=== PATIENT | male | born 1950 | race Caucasian/White ===

== ENCOUNTER 2020-07-28 10:34 | Emergency (ER) | payer OTHER, SELFPAY ==
[2020-07-28 10:40] VITALS: BP 156/104; PULSE 81; RESP 14; O2SAT 96; BMI 29.4
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
--- NOTE | 2020-07-28 10:56 | XR_ITS ---
WS: [id number] Right ankle, 3 views, 07/28/2020 Clinical Data: ankle injury with pain and swelling Comparison: None. Findings: There is an oblique fracture of the distal right fibula at the level of the ankle mortise. There is m inimal displacement. The ankle mortise is intact. The medial malleolus and distal tibia are normal. Minimal calcification in the caldwell of the posterior tibial artery can be seen. XR/XR ankle RT min 3V* [id number] Impression: Oblique fracture of distal right fibula.
[2020-07-28 12:10] VITALS: BP 139/72; PULSE 72; RESP 14; O2SAT 96
--- NOTE | 2020-07-28 14:01 | DCPLANNER ---
farm field manager had message to schedule a follow up appointment for patient with ortho. farm field manager called the ortho clinic, spoke with Beatriz, gave clinic patients information. farm field manager was told that patients information would be printed and reviewed. Clinic will call patient with appointment information.
--- NOTE | 2020-07-31 10:56 | DCPLANNER ---
Matilde from [facility] called clinical case manager with appointment information. Patient has a follow up appointment scheduled for Friday, July 31, 2020 at 1:[address] Reeves. Clinic will call patient with appointment information. insurance risk manager called [facility] with [facility] to inform the [facility] of [facility] scheduled appointment.
--- NOTE | 2020-08-03 14:52 | DCPLANNER ---
Patient had an appointment scheduled for 07.31.20 with ortho - patient did attend the appointment.
== END 2020-07-28 12:11 | disposition home or self-care (01) ==
LOC: ER 11:52
PROVIDERS: Emergency Provider Physician Assistant; PCP Family Medicine
DX: S82.831A Other fracture of upper and lower end of right fibula, initial encounter for closed fracture (principal); X50.1XXA Overexertion from prolonged static or awkward postures, initial encounter
CPT/HCPCS: 12345; 29515; 73610; 99281; 99283

== ENCOUNTER → 2020-08-01 07:45 | Outpatient (BNVA) | payer OTHER, SELFPAY | PROVIDERS: PCP Family Medicine; Visit Provider Specialist | DX: Z11.59 Encounter for screening for other viral diseases (principal) | CPT/HCPCS: 87635 ==

== ENCOUNTER 2020-08-04 07:15 | Day surgery (SDC) | payer OTHER, SELFPAY ==
[2020-08-03 13:19] VITALS: BMI 29.4
--- NOTE | 2020-08-04 | SCC_ITS ---
Procedure Done: Open reduction internal fixation right distal fibula fracture, displaced, utilizing the Malia lateral fibular plate, 4-hole 57.3 seconds of fluoroscopic guidance, for a cumulative dose of 2.59 mGy, was provided to Dr. Reeves by the radiology department. C-arm images of the RIGHT ankle were saved for the patient's permanent record. [facility]
--- NOTE | 2020-08-04 | XRR_ITS ---
PROCEDURE INFORMATION: Exam: XR Right Ankle Exam date and time: 08/04/2020 11:51 AM Age: 70 years old Clinical indication: Device placement; Joint fixation hardware; Prior surgery; Surgery date: Post-operative (0-2 days); Additional info: Or pics TECHNIQUE: Imaging protocol: XR Right ankle. Views: 1 or 2 views. COMPARISON: CR XR ankle RT min 3V* [id number] 07/28/2020 11:02 AM FINDINGS: Bones/joints: Metallic plate and screws are present in the lateral malleolus consistent with ORIF. The bones appear anatomically aligned. No additional bony abnormalities are present. Soft tissues: Unremarkable XR/XR ankle RT 2V [id number] IMPRESSION: 1. Status post ORIF lateral malleolus 2. Otherwise No acute findings.
[2020-08-04 07:49] VITALS: BP 120/65; PULSE 78; RESP 18; TEMP 35.8; O2SAT 99
[2020-08-04 07:50] LABS: Add Urine Microscopic? NO
--- NOTE | 2020-08-04 08:09 | W.PM.OPSUD ---
Surgery/Procedure H&P Update DATE OF PROCEDURE: August 04, 2020 DATE H&P PERFORMED: 07/31/20 H&P UPDATE INFORMATION: I have reviewed H&P completed within last 30 days, No changes to prior documentation and H&P is in [facility] EMR on date indicated PREOP DIAGNOSIS: Right distal fibula fracture, displaced PLANNED PROCEDURE: Operation Date: 08/04/20 09:30 Proposed Procedures p R ORIF Distal Fibula(Right) - Sherrie Reeves MD Related Problem List Diagnoses (1) Fracture of distal end of fibula: Qualifiers: Encounter type: initial encounter Fracture morphology: other fracture Fracture type: closed Laterality: right Qualified Code(s): S82.831A - Other fracture of upper and lower end of right fibula, initial encounter for closed fracture
[2020-08-04] MEDS: sodium chloride 0.9% 1,000 ML 30 ML IV (08:19)
[2020-08-04] MEDS: CELEcoxib 200 mg Capsule 400 MG PO (08:19)
--- NOTE | 2020-08-04 08:21 | ANES.PREANE2 ---
Pre-Anesthetic Assessment Pre-Anesthetic Assessment: Height/Weight: Height 1.83 m Weight 98.43 kg Temp Pulse Resp BP Pulse Ox 96.5 F L 78 18 120/65 99 08/04/20 07:49 08/04/20 07:49 08/04/20 07:49 08/04/20 07:49 08/04/20 07:49 Preop Diagnosis: Right distal fibula fracture, displaced Proposed Procedure: Operation Date: 08/04/20 09:30 Proposed Procedures p R ORIF Distal Fibula(Not Applicable) - Sherrie Reeves MD Familial anesthetic complications: None Was Beta Fernando taken within 24 hours: N/A Last intake: Intake Last Liquid Date 08/04/20 Last Liquid Time 00:00 Last Solid Date 08/03/20 Last Solid Time 20:00 Social: Social History: Alcohol and No alcohol Comment: 1 drink daily Exam: Pre-Anes Outpt Exam: alert, oriented x 3, clear to auscultation bilaterally and regular rate & rhythm Airway: Cervical ROM: WNL MP: 2 Dentition: False Additional comments: Full wolff Pulmonary: Pulmonary: Sleep apnea (suspected) Hepatic: Comments: fatty liver Neuropsych: Neuropsych: TIA (last one several years ago) Anesthetic Plan: ASA status: 2 Anesthesia: General and Regional (specify below) Risk of > 500 ml blood loss (7ml/kg in children): No Meds/Allergies Current Medications: Current Medications Generic Name Dose Route Start Last Admin Trade Name Freq PRN Reason Stop Dose Admin Sodium Chloride 1,000 mls @ 30 ml s/hr 08/04/20 07:45 08/04/20 08:19 Sodium Chloride 0.9% IV 08/05/20 07:44 30 mls/hr .Q24H IRA Administration PFSH Anesthesia PFSH: Social History Smoking and tobacco status: never smoked Alcohol intake: current Alcohol intake frequency: 0-2 Drinks per Day Data Anesthesia CBC & Chem 7: 08/04/20 08:10 08/04/20 08:10 Cardiac Studies: No Data to Display
[2020-08-04 08:22] LABS: Basophils # 0.1 10^3/uL (0.0-0.1); Basophils % 0.5 %; Eosinophils # 0.1 10^3/uL (0.0-0.8); Eosinophils % 1.4 %; Hematocrit 47.2 % (42.0-52.0); Hemoglobin 16.1 g/dL (11.7-16.6); Lymphocytes # 1.6 10^3/uL (0.8-4.8); Lymphocytes % 15.1 %; Mean Corpuscular HGB Conc 34.1 g/dL (30.0-36.0); Mean Corpuscular Hemoglobin 30.8 pg (28.0-34.0); Mean Corpuscular Volume 90.2 fL (80-94); Mean Platelet Volume 10.9 fL (7.4-10.4); Monocytes # 0.8 10^3/uL (0.2-0.9); Monocytes % 7.6 %; Neutrophils # 7.75 10^3/uL (1.8-7.7); Nucleated Red Blood Cells % 0 %; Platelet Count 166 10^3/cmm (130-400); Red Blood Count 5.23 10^6/uL (4.1-5.3); Red Cell Distribution Width 12.8 % (12.1-15.1); White Blood Count 10.3 10^3/uL (4.0-10.0)
[2020-08-04 08:38] LABS: Bilirubin Urine Neg (Negative); Blood Urine Neg (Negative); Glucose Urine UA Norm (Normal); Ketones Urine Negative (Negative); Leukocyte Esterase Urine Negative (Negative); Nitrate Urine Negative (Negative); Protein Urine Neg (Negative); Urine Appearance Clear (CLEAR); Urine Color Yellow (Yellow); Urobilinogen Urine 1 mg/dL (Negative); pH Urine 6.5 (5-7)
[2020-08-04] MEDS: midazolam 1 mg/mL INJ 2 mL 2 MG IVP (08:40)
[2020-08-04 08:54] LABS: Blood Urea Nitrogen 13 mg/dL (8-23); Calcium 9.6 mg/dL (8.5-10.5); Carbon Dioxide 25 mmol/L (22-29); Chloride 100 mmol/L (98-107); Glucose 98 mg/dL (65-115); Osmolality Calculated 280 mOsm/kg (285-295); Sodium 135 mmol/L (136-145)
[2020-08-04 08:55] LABS: Anion Gap 14.6 (5-19); Potassium 4.6 mmol/L (3.5-5.1)
--- NOTE | 2020-08-04 09:08 | ANES.PROC ---
Anesthesia Procedures Procedure/Date: 08/04/20 Nerve Block ^: Nerve Block 1: Main Anesthesia: general anesthesia Time Out Performed: Yes Consent: requested by attending/covering physician, from patient, risks and benefits reviewed and patient agrees to proceed Nerve block location: popliteal (R) Anesthesia monitors applied: pulse oximetry, BP cuff and oxygen Nerve block position: supine Anesthetic Used: ropivicaine 0.5% and with decadron (4 mg) Amount of anesthesia used (mL): 30 Ultrasound used to: recognize landmarks Nerve Stimulator Used?: No Interscalene/Femoral BLK: 4 stimuplex 21 g needle used for position and inplane approach, other needle, visualize local anesthetic spread and no vascular puncture identified Injection: neg aspiration of heme Patient Tolerated Procedure: well and no complications Complications: none Additional Comments: Patient experienced parasthesia with needle redirection. Needle was re-directed with dissapearance of parasthesia. No injection occurred during parasthesia
[2020-08-04] MEDS: ceFAZolin 1,000 mg SDV 1000 MG IRRIGATION (10:47)
--- NOTE | 2020-08-04 11:28 | PM.OP ---
Operative Report Date of procedure: August 04, 2020 Pre-op Diagnosis: Right distal fibula fracture, displaced Procedure Done: Open reduction internal fixation right distal fibula fracture, displaced, utilizing the Malia lateral fibular plate, 4-hole Specimens removed/disposition: None Pathology: none sent Surgeon: Sherrie Reeves Cutting Table Operator: [facility] OR technicians Anesthesia: General (Intubated, ASA 2) Estimated blood loss (mL): 5 Tourniquet time (min): 56 Tourniquet time: At 250 mmHg IV fluids (mL): 800 Urine output (mL): 0 Urine output: No Malave Complications: None Condition: stable Disposition: PACU (Then home with family) Brief History: This 70-year-old gentleman presented after a fall where he suffered the above injury. He was seen in the office, and upon discussion, we elected to proceed with open reduction internal fixation to allow him to begin movement and function more quickly. The patient understood the risks and complications and agreed to proceed. Procedure: Patient was seen in the preoperative holding area and leg was marked. Patient was brought to the operating theater and placed on the operating room table. After undergoing adequate general intubated anesthesia, ASA 2, the patient's right lower extremity was prepped and draped in usual fashion utilizing DuraPrep. The leg was draped free. Fluoroscopy was used throughout the surgical procedure. We did have a tourniquet high on the right lower extremity. This was elevated to 250 mmHg and total tourniquet time was 56 minutes. Tourniquet elevation followed exsanguination of the leg. A surgical pause was performed. At the time of the surgical pause we identified the site and side of surgery as well as the patient's identity and availability of equipment. We also confirmed appropriate administration of IV antibiotics, Ancef 2 g. Following the above, an incision was made centering over the patient's distal fibular fracture. The incision was continued proximally and distally as necessary to allow access to the fracture site. We were able to reduce the fracture anatomically. This was held with a clamp while we contoured a plate to appropriately fit the patient's right distal fibula. Sheridan 4-hole lateral fibular plate plate was attached with standard technique. We used a combination of locking as well as nonlocking screws. Once the plate was appropriately attached, we irrigated the wound. We then closed the wound with 2-0 Monocryl in the subcutaneous tissues, and the skin was closed with 3-0 Monocryl. At the conclusion we obtained AP and lateral images demonstrating the fracture was anatomically reduced. Sterile dressing was placed consisting of Exofin, steri-strips, opsite, 4 x 4's, sterile soft roll and an Imer wrap. Anteriorly, the patient had 2 large areas of skin breakdown and these had a an OpSite placed over them. The patient was placed in a Cam Walker boot and is to remain touchdown weightbearing. The procedure was well tolerated without complication. Tourniquet time was 56 minutes at 250 mmHg. The patient will be discharged home to follow-up in my office as scheduled. Associated Problem List Diagnoses (1) Fracture of distal end of fibula: Qualifiers: Encounter type: initial encounter Fracture morphology: other fracture Fracture type: closed Laterality: right Qualified Code(s): S82.831A - Other fracture of upper and lower end of right fibula, initial encounter for closed fracture
[2020-08-04 11:38] VITALS: BP 122/72; PULSE 98; RESP 16; TEMP 36.6; O2SAT 94
[2020-08-04 11:45] VITALS: BP 146/82; PULSE 87; RESP 18; O2SAT 96
[2020-08-04 11:52] VITALS: BP 129/76; PULSE 85; RESP 18; TEMP 35.8; O2SAT 93
[2020-08-04 12:07] VITALS: BP 131/81; PULSE 77; RESP 18; O2SAT 97
--- NOTE | 2020-08-04 12:10 | ANE.PACU2 ---
Inpatient post-anesthesia follow up: Airway intact: Yes Vital signs: Temperature 96.5 F Pulse Rate 77 Respiratory Rate 18 Blood Pressure 131/81 Pulse Oximetry 97 Oxygen Delivery Me thod Room Air Oxygen Flow Rate Fraction of Inspir ed Oxygen Hydration adequate: Yes Nausea and vomiting: No Pain level: 1 Mental status: Baseline
== END 2020-08-04 12:25 | disposition home or self-care (01) ==
PROVIDERS: PCP Family Medicine; Visit Provider Specialist
PROC: 0QSK04Z Reposition Left Fibula with Internal Fixation Device, Open Approach (ICD-10-PCS; CPT 27828; principal; 2020-08-04 09:30)
DX: S82.831A Other fracture of upper and lower end of right fibula, initial encounter for closed fracture (principal); G47.30 Sleep apnea, unspecified; Z86.73 Personal history of transient ischemic attack (TIA), and cerebral infarction without residual deficits; X58.XXXA Exposure to other specified factors, initial encounter
CPT/HCPCS: 27792; 12345; 36415; 73600; 76000; 80048; 81003; 85025; 96365; 96374; C1713; J0131; J0330; J0690; J1100; J2250; J2405; J2704; J2795; J3010; J3490; J7030

== ENCOUNTER 2020-08-08 16:00 | Emergency (ER) | payer OTHER, SELFPAY ==
[2020-08-08 16:19] VITALS: BP 130/81; PULSE 84; RESP 16; TEMP 36.9; O2SAT 99; BMI 29.8
--- NOTE | 2020-08-08 16:32 | USCV_ITS ---
Torres Ojeda Age: 70 Gender: M : 1950 Exam Date: 08/08/2020 16:48 Ordering Phys: Kobe Gomes Technologist: Mary Ozuna [place] [facility] [place] Indication: LEG SWELLING POST OP PAIN PROCEDURES: Venous duplex imaging was performed in only the right lower extremity. The following venous structures were evaluated: common femoral vein, profunda vein, proximal portion of the greater saphenous vein, superficial femoral vein, and the popliteal vein. In addition, the posterior tibial and peroneal trunk were evaluated. Serial compression, augmentation maneuvers, and spectral Doppler flow evaluation were performed. FINDINGS: Normal 2-D Doppler and augmentation and compressibility throughout the lower extremity venous structures. Additional imaging through the proximal calf veins also reveals no thrombus. Limited evaluation of the greater saphenous vein is patent with no thrombus.. CONCLUSIONS No evidence of right lower extremity DVT. Parth Shoemaker MD (Electronically Signed) Final Date: 09 August 2020 08:59 S
--- NOTE | 2020-08-08 16:33 | ED_ITS ---
HPI - Wound/Laceration General: Chief Complaint: Wound/Laceration Stated Complaint: redness on incision post surg Time Seen by Provider: 08/08/20 16:23 History of Present Illness: HPI narrative: Patient had surgery right lower extremity on 08/[address] Omalley. Patient will gas foot about a 1300 a notes that was read and felt full. Call Dr. Omalley's office said come and get evaluated Onset (ago): hour(s) Extremity Location: Right: lower leg Place: home Patient tetanus UTD: Yes Associated symptoms: Reports no associated symptoms Review of Systems Skin/Breast: Reports: erythema and skin tenderness (Right lower extremity right foot redness since about 1300) PFSH ED PFSH: Social History Smoking and tobacco status: never smoked Alcohol intake: current Alcohol intake frequency: 0-2 Drinks per Day Physical Exam Const: COMMON NORMALS: no acute distress Extremity: RIGHT LOWER EXTREMITY: Yes foot & digits (Right foot lateral aspect down below toes #4 and 5 there is redness to the dorsal aspect of the willow machine tender to the touch erythema does not extend proximally from that area) Course Vital Signs: Vital signs: Vital Signs Temperature 98.5 F 08/08/20 16:19 Pulse Rate 74 08/08/20 17:38 Respiratory Rate 14 08/08/20 17:38 Blood Pressure 114/66 08/08/20 17:38 Pulse Oximetry 96 08/08/20 17:38 Discharge Plan Discharge Patient Disposition: Home Clinical Impression: Cellulitis Qualifiers: Site of cellulitis: other site Qualified Code(s): L03.818 - Cellulitis of other sites Condition: Stable Prescriptions: New Bactrim DS 800-160 mg tablet 1 tab PO BID 7 Days Qty: 14 RF: 0 No Action atorvastatin 40 mg tablet 40 mg PO DAILY RF: 0 cholecalciferol (vitamin D3) 25 mcg (1,000 unit) capsule 25 mcg PO DAILY RF: 0 cyclobenzaprine 10 mg tablet 10 mg PO TID PRN (Reason: for sleep) RF: 0 gabapentin 300 mg capsule 300 mg PO QID RF: 0 lisinopril 10 mg tablet 10 mg PO DAILY RF: 0 tadalafil 10 mg tablet 10 mg PO DAILY PRN (Reason: Sexual Activity) RF: 0 tamsulosin 0.4 mg capsule 0.4 mg PO DAILY RF: 0 allopurinol 300 mg PO DAILY RF: 0 meloxicam 15 mg PO DAILY RF: 0 Celebrex 200 mg capsule 200 mg PO DAILY 30 Days Qty: 30 RF: 0 [place] 5-325 mg tablet 1 tab PO Q4H PRN (Reason: pain) Qty: 30 RF: 0 Discharge Orders: Discharge Order (Routine); Ordered 08/08/20 Ordered By: Kobe Gomes Referrals: Prosper Llamas [Primary Care Provider] - Discharge Diet: Usual diet Discharge Activity: Increase activity as tolerated Patient Instructions: Cellulitis (ED) Activity Restrictions/Additional Instructions: Follow-up with medical provider as directed. Take medications as prescribed. Return to the ER or your medical provider if condition worsens. Please read and understand discharge instructions. If any questions ask please. Follow up Dr. Omalley as scheduled Discharge Date/Time: 08/08/20 17:39 Coding Level of Care Code ED Shift Supervisor Film Processing for Vivianag Fwd Exam Expanded Problem Focused
[2020-08-08] MEDS: sulfamethoxazole-trimeth DS 160-800 mg Tablet 1 TAB PO (17:30)
[2020-08-08 17:38] VITALS: BP 114/66; PULSE 74; RESP 14; O2SAT 96
== END 2020-08-08 17:39 | disposition home or self-care (01) ==
PROVIDERS: Emergency Provider Nurse Practitioner Family; PCP Family Medicine
DX: L03.818 Cellulitis of other sites (principal); M79.89 Other specified soft tissue disorders
CPT/HCPCS: 12345; 93971; 99281; 99282

== ENCOUNTER → 2020-08-17 11:51 | Outpatient (BNVA) | payer OTHER, SELFPAY | PROVIDERS: PCP Family Medicine; Visit Provider Specialist | DX: S82.831A Other fracture of upper and lower end of right fibula, initial encounter for closed fracture (principal); X58.XXXA Exposure to other specified factors, initial encounter | CPT/HCPCS: 73610 ==

== ENCOUNTER → 2020-09-07 15:26 | Outpatient (BNVA) | payer OTHER, SELFPAY | PROVIDERS: PCP Family Medicine; Visit Provider Specialist | DX: S82.831A Other fracture of upper and lower end of right fibula, initial encounter for closed fracture (principal); X58.XXXA Exposure to other specified factors, initial encounter | CPT/HCPCS: 73610 ==

== ENCOUNTER → 2020-09-28 08:12 | Outpatient (BNVA) | payer OTHER, SELFPAY | PROVIDERS: PCP Family Medicine; Visit Provider Specialist | DX: S82.831A Other fracture of upper and lower end of right fibula, initial encounter for closed fracture (principal) | CPT/HCPCS: 73610 ==

== ENCOUNTER 2023-03-06 21:20 | Emergency (ER) | payer OTHER, SELFPAY ==
[2023-03-06] VITALS (7 sets, daily range): BP systolic 110–127; BP diastolic 67–77; PULSE 67–79; RESP 16–20; TEMP 36.7; O2SAT 91–95; BMI 31.8
--- NOTE | 2023-03-06 21:25 | XRR_ITS ---
PROCEDURE INFORMATION: Exam: XR Chest Exam date and time: 03/06/2023 9:37 PM Age: 72 years old Clinical indication: Other: Weakness TECHNIQUE: Imaging protocol: Radiologic exam of the chest. Views: 1 view. COMPARISON: CR XR ribs LT mn 3V w CXR1V [id number] 02/02/2017 7:34 PM FINDINGS: Lungs: Cardiac silhouette size, and vascularity are somewhat accentuated, likely related to poor inspiration/expansion however clinical correlation for mild CHF should be obtained. Upper lungs are clear. Lung bases are suboptimally assessed. Pleural spaces: No pleural effusion. No pneumothorax. Heart/Mediastinum: As above. Bones/joints: No acute osseous findings. Probable old/healed left posterior rib fractures. Other findings: Single view was submitted. XR/XR chest 1V portable [id number] IMPRESSION: 1. Accentuated cardiac silhouette size and vascularity. See discussion above. 2. No obvious acute consolidation. Suboptimal lung base assessment. Followup including lateral view may be obtained if clinically indicated.
--- NOTE | 2023-03-06 21:36 | ECG_ITS ---
[facility] Test Date: 2023-03-06 Pat Name: Torres Ojeda Department: Room: Gender: Male Case Supervisor: : 1950 Requested By: Ayden Cortes Order Number: [id number] Lizeth MD: Gretchen Polanco M.D. Measurements Intervals [place]camp[place] Rate: 78 P: 19 VA: 196 QRS: 21 QRSD: 93 T: 52 QT: 378 QTc: 431 Interpretive Statements SINUS RHYTHM NONSPECIFIC T-WAVE ABNORMALITY No previous ECG available for comparison Electronically Signed On 03-07-2023 1:35:22 CDT by Gretchen Polanco M.D. [id number]
[2023-03-06 21:42] LABS: Basophils # 0.1 10^3/uL (0.0-0.1); Basophils % 0.6 %; Eosinophils # 0.1 10^3/uL (0.0-0.8); Eosinophils % 0.8 %; Hematocrit 38.8 % (42.0-52.0); Hemoglobin 13.3 g/dL (11.7-16.6); Lymphocytes # 0.7 10^3/uL (0.8-4.8); Lymphocytes % 8.3 %; Mean Corpuscular HGB Conc 34.3 g/dL (30.0-36.0); Mean Corpuscular Hemoglobin 31.6 pg (28.0-34.0); Mean Corpuscular Volume 92.2 fl (80-94); Mean Platelet Volume 10.3 fL (7.4-10.4); Monocytes # 0.4 10^3/uL (0.2-0.9); Monocytes % 4.7 %; Neutrophils # 7.48 10^3/uL (1.8-7.7); Neutrophils % 85.3 %; Nucleated Red Blood Cells % 0 %; Platelet Count 148 10^3/cmm (130-400); Red Blood Count 4.21 10^6/uL (4.1-5.3); Red Cell Distribution Width 13.9 % (12.1-15.1); White Blood Count 8.8 10^3/uL (4.0-10.0)
[2023-03-06 21:55] LABS: INR 0.97 (0.8-1.2)
[2023-03-06 22:00] LABS: Alanine Aminotransferase 20 U/L (0-41); Alkaline Phosphatase 95 U/L (40-130); Anion Gap 15.4 (5-19); Aspartate Amino Transferase 21 U/L (0-40); Blood Urea Nitrogen 12 mg/dL (8-23); Calcium 8.3 mg/dL (8.5-10.5); Carbon Dioxide 27 mmol/L (22-29); Chloride 101 mmol/L (98-107); Globulin 2.4 g/dL (1.3-4.6); Glomerular Filtration Rate 111.5 mL/min (90-130); Glucose 115 mg/dL (65-115); Osmolality Calculated 289 mOsm/kg (285-295); Potassium 4.4 mmol/L (3.5-5.1); Sodium 139 mmol/L (136-145); Total Bilirubin 0.7 mg/dL (0.15-1.2); Total Protein 6.4 g/dL (6.6-8.7)
[2023-03-06 22:04] LABS: Alcohol Level 19 mg/dL (0-10)
[2023-03-06 22:13] LABS: Troponin(5th) Baseline 16 ng/L (0-15)
[2023-03-06] MEDS: sodium chloride 0.9% 1,000 ML 999 ML IV (22:25)
--- NOTE | 2023-03-06 22:25 | CTR_ITS ---
PROCEDURE INFORMATION: Exam: CT Head Without Contrast Exam date and time: 03/06/2023 10:36 PM Age: 72 years old Clinical indication: Stroke-like symptoms; Speech disturbance; Generalized weakness; Additional info: Weakness. Lkw [id number] TECHNIQUE: Imaging protocol: Computed tomography of the head without contrast. Radiation optimization: All CT scans at this facility use at least one of these dose optimization techniques: automated exposure control; mA and/or kV adjustment per patient size (includes targeted exams where dose is matched to clinical indication); or iterative reconstruction. Other technique: STROKE PROTOCOL was implemented. REPORTING DATA: Count of CT and Cardiac NM exams in prior 12 months: This patient has received 0 known CTs and 0 known cardiac nuclear medicine studies in the 12 months prior to the current study. COMPARISON: No relevant prior studies available. RADIATION DOSE METRICS: Total DLP (mGy-cm): 1249.18 FINDINGS: Brain: Mild periventricular white matter hypodense changes, most likely related to chronic microvascular ischemic disease or other nonspecific white matter disease. Minimal brain parenchymal atrophy. No hemorrhage. No mass effect or midline shift. Cerebral ventricles: No pathologic hydrocephalus. Paranasal sinuses: Visualized sinuses are unremarkable. No fluid levels. Mastoid air cells: Visualized mastoid air cells are well aerated. Bones/joints: Unremarkable. No acute fracture. Soft tissues: Unremarkable. CT/CT head thrombolytic [id number] IMPRESSION: 1. Minimal atrophy and mild nonspecific white matter changes as described above. 2. No acute intracranial findings otherwise. ASSESSMENT: ASPECTS ([place] Stroke Program Early CT Score) is 10.
[2023-03-06] MEDS: ondansetron 2 mg/ML SDV 2 mL 4 MG IVP (22:26)
--- NOTE | 2023-03-06 22:26 | ED_ITS ---
HPI - Nausea/Vomiting/Diarrhea General: Chief complaint: Nausea/Vomiting/Diarrhea Stated complaint: WEAKNESS Time Seen by Provider: 03/06/23 21:26 Source: patient and EMS Mode of arrival: EMS Limitations: no limitations History of Present Illness: 72-year-old male states that he was eating supper a few hours ago started to feel very weak dizzy states he felt lightheaded and was diaphoretic and started vomiting. He states that since then he is just felt lightheaded and had a hard time walking. He denies any headache denies any fever denies any worsening proving factors. Patient does informed he is drinking a few beers tonight as well. He does have some slurred speech EMS is unsure if this is new family is not here at this time Associated nausea: Yes Associated symtoms: Reports dizziness and nausea; Denies chest pain Review of Systems Const: Denies: fever(s) or chills Eyes: Denies: blurry vision ENMT: Denies: throat pain Card: Denies: chest pain Resp: Denies: dyspnea, productive cough or non-productive cough GI: Reports: nausea and vomiting Musc: Denies: neck pain Skin/Breast: Denies: rash Neuro: Reports: weakness in extremities and dizziness PFSH ED PFSH: Social History Smoking and tobacco status: never smoked Alcohol intake: current Alcohol intake frequency: 0-2 Drinks per Day Substance/Drug Use: never Physical Exam Const: COMMON NORMALS: patient oriented x3 and alert GENERAL APPEARANCE: in distress and ill appearing ORIENTATION/CONSCIOUSNESS: Yes oriented to person and Yes oriented to place HENMT: COMMON NORMALS: normocephalic and atraumatic HEAD & SCALP: normocephalic and atraumatic Eye: COMMON NORMALS: Equal, round and reactive pupils present and conjunctivae normal CONJUNCTIVA: Yes conjunctivae normal PUPIL: Yes Equal, round and reactive pupils present OTHER: Beating nystagmus when looking to the right Neck/C-Spine: COMMON NORMALS: full ROM, supple and no meningeal signs Cardio: COMMON NORMALS: regular rate RATE: regular rate GI: COMMON NORMALS: Soft to palpation INSPECTION: Yes normal to inspection PALPATION: Yes Soft to palpation Extremity: COMMON NORMALS: normal to inspection Neuro: COMMON NORMALS: patient oriented x3 SENSORIUM/ORIENTATION: Yes alert, Yes oriented to person and Yes oriented to place MENINGEAL SIGNS: Yes no meningeal signs SPEECH: abnormal speech GAIT: Yes Ataxic gait present MOTOR EXAM: 5/5 motor strength present throughout Psych: COMMON NORMALS: mental status grossly normal Skin: COMMON NORMALS: no rashes or lesions noted GENERAL SKIN EXAM: no rashes or lesions noted Course Reevaluation(s): Reevaluation #1: Patient report from EMS was more of a story of syncope with vomiting once. Patient is very hard to get history from him and I did not know his baseline family came back in the room at 1030 and is able to speak to them they stated his baseline he is actually very strong I said that tonight when he had this episode it happened at 8:00 and the day after that he was having difficulty speaking he does have some slurred speech here he has no focal weakness on neuro exam but he does have a hard time standing he still has some dizziness and nausea. After speaking to family I am concerned that he is possibly had a stroke and will activate stroke alert at this time with last known normal at 8 PM Time: 22:33 Vital Signs: Vital signs: Vital Signs Temperature 98.1 F 03/06/23 21:25 Pulse Rate 68 03/06/23 23:35 Respiratory Rate 16 03/06/23 23:35 Blood Pressure 118/72 03/06/23 23:35 Pulse Oximetry 92 03/06/23 23:35 Oxygen Delivery Me thod Nasal Cannula 03/06/23 23:35 Oxygen Flow Rate 3 03/06/23 23:35 MDM - Nausea/Vomiting/Diarrhea Medical Decision Making Patient presented here with EMS for initial complaints of nausea vomiting along with near syncope. Initially evaluated him he did have some slurred speech he admitted to drinking beer his alcohol of only came back at 19 when his family came is able to get a better history from them stating that the speech is not his typical at all he also has some nystagmus when looking to the right he is having some difficulty walking as well he has no focal weakness on his extremity exam. No facial droop. I did speak to neurologist Dr. Mehta with [facility] over telestroke she agreed to me that is very concerning for a posterior stroke his head CT here is normal I went over the risk and benefits of tPA and he is a tPA candidate as his last known normal was 8 PM. He is due for consent and family consented as well. I did speak to Dr. Alejo at [facility] and will transfer there for higher level of care for neurology Medical Records I reviewed the patient's medical records. Lab Data I reviewed the patient's lab results. 03/06/23 21:37 03/06/23 21:37 Radiology Impressions Chest X-Ray 03/06/23 21:25 IMPRESSION: 1. Accentuated cardiac silhouette size and vascularity. See discussion above. 2. No obvious acute consolidation. Suboptimal lung base assessment. Followup including lateral view may be obtained if clinically indicated. Head CT 03/06/23 22:25 IMPRESSION: 1. Minimal atrophy and mild nonspecific white matter changes as described above. 2. No acute intracranial findings otherwise. ASSESSMENT: ASPECTS ([place] Stroke Program Early CT Score) is 10. Laboratory Results WBC 8.8 10^3/uL (4.0-10.0) 03/06/23 21:37 RBC 4.21 10^6/uL (4.1-5.3) 03/06/23 21:37 Hgb 13.3 g/dL (11.7-16.6) 03/06/23 21:37 Hct 38.8 % (42.0-52.0) L 03/06/23 21:37 MCV 92.2 fl (80-94) 03/06/23 21:37 MCH 31.6 pg (28.0-34.0) 03/06/23 21:37 MCHC 34.3 g/dL (30.0-36.0) 03/06/23 21:37 RDW 13.9 % (12.1-15.1) 03/06/23 21:37 Plt Count 148 10^3/cmm (130-400) 03/06/23 21:37 MPV 10.3 fL (7.4-10.4) 03/06/23 21:37 Neut % (Auto) 85.3 % 03/06/23 21:37 Lymph % (Auto) 8.3 % 03/06/23 21:37 [place] % (Auto) 4.7 % 03/06/23 21:37 Eos % (Auto) 0.8 % 03/06/23 21:37 Baso % (Auto) 0.6 % 03/06/23 21:37 Neut # (Auto) 7.48 10^3/uL (1.8-7.7) 03/06/23 21:37 Lymph # (Auto) 0.7 10^3/uL (0.8-4.8) L 03/06/23 21:37 [place] # (Auto) 0.4 10^3/uL (0.2-0.9) 03/06/23 21:37 Eos # (Auto) 0.1 10^3/uL (0.0-0.8) 03/06/23 21:37 Baso # (Auto) 0.1 10^3/uL (0.0-0.1) 03/06/23 21:37 Nucleated RBC % (auto) 0 % 03/06/23 21:37 Nucleated RBCs # 0.0 /100WBC 03/06/23 21:37 PT 13.10 SECONDS (12.1-14.9) 03/06/23 21:37 INR 0.97 (0.8-1.2) 03/06/23 21:37 Sodium 139 mmol/L (136-145) 03/06/23 21:37 Potassium 4.4 mmol/L (3.5-5.1) 03/06/23 21:37 Chloride 101 mmol/L (98-107) 03/06/23 21:37 Carbon Dioxide 27 mmol/L (22-29) 03/06/23 21:37 Anion Gap 15.4 (5-19) 03/06/23 21:37 BUN 12 mg/dL (8-23) 03/06/23 21:37 Creatinine 0.7 mg/dL (0.7-1.2) 03/06/23 21:37 GFR Calculation 111.5 mL/min (90-130) 03/06/23 21:37 Glucose 115 mg/dL (65-115) 03/06/23 21:37 POC Glucose 88 mg/dL (70-110) 03/06/23 22:55 Calculated Osmolality 289 mOsm/kg (285-295) 03/06/23 21:37 Calcium 8.3 mg/dL (8.5-10.5) L 03/06/23 21:37 Total Bilirubin 0.7 mg/dL (0.15-1.2) 03/06/23 21:37 AST 21 U/L (0-40) 03/06/23 21:37 ALT 20 U/L (0-41) 03/06/23 21:37 Alkaline Phosphatase 95 U/L (40-130) 03/06/23 21:37 Troponin T Baseline 16 ng/L (0-15) H 03/06/23 21:37 Total Protein 6.4 g/dL (6.6-8.7) L 03/06/23 21:37 Albumin 4.0 g/dL (3.5-5.2) 03/06/23 21:37 Globulin 2.4 g/dL (1.3-4.6) 03/06/23 21:37 Ethyl Alcohol 19 mg/dL (0-10) H 03/06/23 21:37 Critical Care Time Critical Care Time: Critical Care Time: Yes Total Critical Care Time: 40 Attestation: The high probability of a clinically significant, sudden or life threatening deterioration of the patient's neuro system(s) required my full and direct attention, intervention and personal management. The critical care time is as shown. This time is in addition to time spent performing any reported procedures but includes the following: [x] Data and vital sign review and interpretation [x] Patient assessment, examination and intervention [x] Documentation [x] Medication orders and management Discharge Plan Discharge Patient Disposition: Xfer Short-Term Hosp Clinical Impression: CVA (cerebral vascular accident) Condition: Stable Referrals: Prosper Llamas [Primary Care Provider] - Coding Level of Care Code ED Nut Blanker Operator for Dale Noe NIH stroke score NIHSS Level Of Consciousness - 1a: 0 Level Of Consciousness Questions - 1b: Both Correct Level Of Consciousness Commands - 1c: Both Correct Best Gaze - 2: Normal Visual [place] - 3: No Visual Loss Facial Palsy - 4: Normal Motor Arm Right - 5: No Drift Motor Arm Left - 5: No Drift Motor Leg Right - 6: No Drift Motor Leg Left - 6: No Drift Limb Ataxia - 7: Present In Two Limbs Sensory - 8: Normal Best Language - 9: Mild/Moderate Aphasia Dysarthia - 10: Mild/Moderate Dysarthia Extinction And Inattention - 11: 0 Score Total Score: 4
[2023-03-06 22:59] LABS: Glucose Point of Care 88 mg/dL (70-110)
--- NOTE | 2023-03-06 23:46 | ECG_ITS ---
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 Measurements Intervals [place] Rate: 65 P: 68 MD: 203 QRS: 34 QRSD: 94 T: 64 QT: 400 QTc: 416 Interpretive Statements SINUS RHYTHM WITH SINUS ARRHYTHMIA NONSPECIFIC T-WAVE ABNORMALITY Compared to ECG 03/06/2023 21:36:00 No significant changes Electronically Signed On 03-07-2023 22:19:45 CDT by Gretchen Polanco M.D. [email or web address] st[facility] vincent medical centerBullet News Ltd/store/OM/[id number]
[2023-03-07 00:03] VITALS: BP 128/71; PULSE 71; RESP 16
--- NOTE | 2023-03-07 00:16 | PC.NURSE ---
EMS here for transport, TPA finished and completed in JAN. Bilateral IVs. REport called to [facility] as patient is being transferred for stroke. Dr Cortes documented NIHSS. Neuro assessments completed throughout TPA infusion. Prior to TPA infusion, CT was done and labs drawn.
[2023-03-07 00:19] VITALS: BP 130/75; PULSE 71; RESP 16
[2023-03-07 00:22] LABS: Troponin 5 2HR 13.13 ng/L (0-15)
[2023-03-07 01:07] LABS: Troponin 5 2HR Delta -2.87 ABS# (0-10)
== END 2023-03-07 00:29 | disposition short-term general hospital (02) ==
PROVIDERS: Emergency Provider Emergency Medicine; PCP Family Medicine
DX: I63.9 Cerebral infarction, unspecified (principal)
CPT/HCPCS: 36416; 70450; 71045; 80053; 80307; 82962; 84484; 85025; 85610; 93005; 96365; 96375; 99285; 99291; J2405; J2997; J7030

== ENCOUNTER 2023-07-26 21:27 | Emergency (ER) | payer OTHER, SELFPAY ==
[2023-07-26 21:32] VITALS: BMI 31.1
[2023-07-26 21:40] VITALS: BP 160/98; PULSE 117; O2SAT 96
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
[2023-07-26 22:00] VITALS: BP 141/94; PULSE 116; O2SAT 97
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
[2023-07-26 23:00] VITALS: TEMP 36.9
--- NOTE | 2023-07-26 23:05 | ECG_ITS ---
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 Measurements Intervals [place] Rate: 105 P: 29 ME: 173 QRS: 37 QRSD: 106 T: 49 QT: 342 QTc: 453 Interpretive Statements SINUS TACHYCARDIA WITH OCCASIONAL SUPRAVENTRICULAR PREMATURE COMPLEXES ABNORMAL RHYTHM ECG Compared to ECG 03/06/2023 23:52:47 Sinus rhythm no longer present Sinus arrhythmia no longer present T-wave abnormality no longer present Electronically Signed On 07-27-2023 10:54:14 CDT by Michelet Teran M.D. [email or web address] [email or web address]/[id number]
[2023-07-26 23:24] LABS: Basophils # 0.1 10^3/uL (0.0-0.1); Basophils % 0.3 %; Eosinophils # 0.1 10^3/uL (0.0-0.8); Eosinophils % 0.3 %; Lymphocytes # 1.3 10^3/uL (0.8-4.8); Lymphocytes % 7.8 %; Mean Corpuscular HGB Conc 35.7 g/dL (30-55); Mean Corpuscular Hemoglobin 31.7 pg (27-33); Mean Corpuscular Volume 88.9 fl (82-101); Mean Platelet Volume 10.1 fL (7.4-10.4); Monocytes # 1.1 10^3/uL (0.2-0.9); Monocytes % 6.9 %; Neutrophils # 13.77 10^3/uL (1.8-7.7); Neutrophils % 84.3 %; Nucleated Red Blood Cells % 0 %; Platelet Count 164 10^3/cmm (157-399); Red Blood Count 4.95 10^6/uL (3.85-5.65); Red Cell Distribution Width 12.7 % (12.1-15.1); White Blood Count 16.33 10^3/uL (3.29-11.43)
[2023-07-26] MEDS: lidocaine-epi 1% 20 mL INJ INJECTION (23:29)
[2023-07-26 23:48] LABS: Alanine Aminotransferase 29 U/L (0-41); Albumin Level 4.8 g/dL (3.5-5.2); Alkaline Phosphatase 112 U/L (40-130); Aspartate Amino Transferase 25 U/L (0-40); Blood Urea Nitrogen 22 mg/dL (8-23); Calcium 9.3 mg/dL (8.5-10.5); Carbon Dioxide 26 mmol/L (22-29); Chloride 98 mmol/L (98-107); Globulin 2.8 g/dL (1.3-4.6); Glucose 103 mg/dL (65-115); Osmolality Calculated 286 mOsm/kg (285-295); Sodium 136 mmol/L (136-145); Total Protein 7.6 g/dL (6.6-8.7)
[2023-07-26 23:49] LABS: Alcohol Level < 10 mg/dL (0-10); Creatinine Clr Calc Pharmacy 105.7645
== END 2023-07-27 00:51 | disposition short-term general hospital (02) ==
PROVIDERS: Emergency Provider Emergency Medicine; PCP Family Medicine
DX: S06.351A Traumatic hemorrhage of left cerebrum with loss of consciousness of 30 minutes or less, initial encounter (principal); S01.01XA Laceration without foreign body of scalp, initial encounter; Y04.2XXA Assault by strike against or bumped into by another person, initial encounter; R00.0 Tachycardia, unspecified; Z79.82 Long term (current) use of aspirin
CPT/HCPCS: 12002; 70450; 80053; 80307; 85025; 93005; 99284